=== PATIENT | male | born 1990 | race Two or more races ===

== ENCOUNTER → 2024-10-07 11:03 | Outpatient (REF) | payer OTHER, SELFPAY ==
[2024-10-07 12:43] LABS: HDL Cholesterol 42 mg/dl; LDL Cholesterol, Calculated 109 mg/dl; Total Cholesterol 229 mg/dl (50-199); Triglyceride 394 mg/dl (10-149); Very Low Density Lipoprotein 78 mg/dl (0-30)
[2024-10-07 13:02] LABS: Glycohemoglobin (HgbA1c) 5.4 % (4.0-5.6)
== END ==
LOC: CLINIC 11:03
PROVIDERS: ATTENDING PHYSICIAN Internal Medicine
DX: E78.00 Pure hypercholesterolemia, unspecified (principal)
CPT/HCPCS: 36415; 80061; 83036